=== PATIENT | female | born 1985 | race Caucasian/White ===

== ENCOUNTER 2019-11-28 12:06 | Emergency (ER) | payer MEDICAID ==
[~2019-11-28] VITALS: Ht 157.5 cm; Wt 78.2 kg
[2019-11-28 12:06] VITALS: BP 136/89
[2019-11-28] MEDS ORDERED: HYDR-3165 PO (12:26)
[2019-11-28] MEDS ORDERED: AMOX1TAB61 PO (12:26)
--- NOTE | 2019-11-28 12:26 | PHYS DOC ---
Past History Past Medical History: Hypertension Past Surgical History: No Surgical History Alcohol Use: None General Adult EDM: Chief Complaint: DENTAL PROBLEM HPI: HPI: History obtained from the patient. Patient is a 34-year-old female with reported past medical history of hypertension who presents with chief complaint of right lower dental pain. Patient states she is had the symptoms for the past 2 days. She notes she was seen at an outside facility 2 days ago and prescribed Vicodin and clindamycin. She states he does not think the clindamycin is working. She notes some increased swelling to her right lower jaw. She denies any pain with opening her mouth. She denies any drainage in her mouth. Denies fevers or vomiting. Denies direct trauma to the tooth. States she has not been able to follow-up with a dentist yet because it is the weekend. States the Vicodin seems to make her nauseous. Denies any history of allergies to medications. Denies any IV drug use. Denies any swelling to the submental region. Denies any tongue swelling. Denies any pain with swallowing or changes to her voice. No other complaints. Review of Systems: Review of Systems: Constitutional: Denies fever or chills Eyes: Denies change in visual acuity HENT: Positive for dental pain Respiratory: Denies cough or shortness of breath Cardiovascular: Denies chest pain or edema GI: Denies abdominal pain, nausea, vomiting, bloody stools or diarrhea : Denies dysuria Musculoskeletal: Denies back pain or joint pain Integument: Denies rash Neurologic: Denies headache, focal weakness or sensory changes Endocrine: Denies polyuria or polydipsia Lymphatic: Denies swollen glands Psychiatric: Denies depression or anxiety Heart Score: Risk Factors: Risk Factors: DM, Current or recent (<one month) smoker, HTN, HLP, family history of CAD, obesity. Risk Scores: Score 0 - 3: 2.5% MACE over next 6 weeks - Discharge Home Score 4 - 6: 20.3% MACE over next 6 weeks - Admit for Clinical Observation Score 7 - 10: 72.7% MACE over next 6 weeks - Early Invasive Strategies Allergies: Allergies: Allergies Coded Allergies Type Severity Reaction Last Updated Verified No Known Drug Allergies 11/28/19 No Physical Exam: PE: Constitutional: Well developed, well nourished, no acute distress, non-toxic appearance. [] HENT: Necrotic appearing tooth #32. No tenderness to palpation. No surrounding apical abscess visualized. No trismus noted. No dysphonia noted. No tonsillar swelling, exudate, uvular deviation. Slight swelling noted to the right submandibular space. No submental firmness or woody sensation appreciated. No anterior neck swelling or erythema noted. Eyes: PERRLA, EOMI, conjunctiva normal, no discharge. [] Neck: Normal range of motion, no tenderness, supple, no stridor. [] Cardiovascular:Heart rate regular rhythm, no murmur [] Lungs & Thorax: Bilateral breath sounds clear to auscultation [] Abdomen: soft, no tenderness, no masses, no pulsatile masses. [] Skin: Warm, dry, no erythema, no rash. [] Back: No tenderness, no CVA tenderness. [] Extremities: No tenderness, no cyanosis, no clubbing, ROM intact, no edema. [] Neurologic: Alert and oriented X 3, normal motor function, normal sensory function, no focal deficits noted. [] Psychologic: Affect normal, judgement normal, mood normal. [] Current Patient Data: Vital Signs: Vital Signs Date Time Temp Pulse Resp B/P (MAP) Pulse Ox O2 Delivery O2 Flow Rate FiO2 11/28/19 12:06 97.7 75 16 136/89 (105) 100 Room Air EKG: EKG: [] Radiology/Procedures: Radiology/Procedures: [] Course & Med Decision Making: Course & Med Decision Making Pertinent Labs and Imaging studies reviewed. (See chart for details) [] Patient is a well-appearing 34-year-old female presents with chief complaint of right lower tooth pain. Initial vital signs unremarkable. Patient does appear to have a necrotic tooth #32. No signs of drainable fluid collection. No signs of deep space infection including RPA, [employer]IST, Sabino's angina. Patient will have her clindamycin transition to Augmentin. She will have her Vicodin transition to hydrocodone. Patient was instructed to throw out her current Vicodin prescription although she states she only has a few tablets left. She states she will follow-up with dentistry tomorrow. Return precautions discussed and understood. She has tolerated her first dose of oral antibiotics in our facility. And she states that she has been tolerating food and drink well. Deni Disclaimer: Deni Disclaimer: This electronic medical record was generated, in whole or in part, using a voice recognition dictation system. Departure Departure: Impression: Primary Impression: Pain, dental Disposition: HOME/RESIDENCE PRIOR TO ADM Condition: STABLE Referrals: PCP,THIAGO (PCP) SHRUTHI KABA MD Patient Instructions: Dental Abscess, Dental Caries Additional Instructions: Please follow-up with your dentist this week. Scripts Hydrocodone Bit/Acetaminophen (NORCO 5-325 TABLET) 1 Each Tablet 1-2 TAB PO Q4-6HRS for pain, #5 TAB Prov: SOLOMON MONTOYA DO 11/28/19 Amoxicillin/Potassium Clav (AUGMENTIN 875-125 TABLET) 1 Each Tablet 1 TAB PO BID for dental pain for 10 Days, #20 TAB 0 Refills Prov: SOLOMON MONTOYA DO 11/28/19 SOLOMON MONTOYA DO Nov 28, 2019 12:26
[2019-11-28] MEDS ORDERED: AMOXICILLIN/K CLAV 875/125MG TABLET. PO ONE (12:30)
[2019-11-28] MEDS ORDERED: IBUPROFEN 600 MG TABLET. PO ONE (12:30)
== END 2019-11-28 13:20 | disposition home or self-care (01) ==
LOC: ER 12:06
DX: K08.89 Other specified disorders of teeth and supporting structures (principal); I10 Essential (primary) hypertension
CPT/HCPCS: 99283